=== PATIENT | female | born 1955 ===

== ENCOUNTER 2018-05-05 01:26 | Outpatient (CLI) | payer MEDICARE, BC | END 2018-05-05 23:59 | disposition home or self-care (01) | LOC: DIABETIC 01:26 | PROVIDERS: ATTEND Specialist | DX: E11.65 Type 2 diabetes mellitus with hyperglycemia (principal) | CPT/HCPCS: G0108 ==

== ENCOUNTER 2018-11-02 01:41 | Outpatient (CLI) | payer MEDICARE, BC | END 2018-11-02 23:59 | disposition home or self-care (01) | LOC: DIABETIC 01:41 | PROVIDERS: ATTEND Specialist | DX: E11.65 Type 2 diabetes mellitus with hyperglycemia (principal); Z79.82 Long term (current) use of aspirin; Z79.84 Long term (current) use of oral hypoglycemic drugs | CPT/HCPCS: G0108 ==

== ENCOUNTER 2019-02-02 01:28 | Outpatient (CLI) | payer MEDICARE, BC | END 2019-02-02 23:59 | disposition home or self-care (01) | LOC: DIABETIC 01:28 | PROVIDERS: ATTEND Specialist | DX: E11.65 Type 2 diabetes mellitus with hyperglycemia (principal); Z79.899 Other long term (current) drug therapy | CPT/HCPCS: G0108 ==

== ENCOUNTER 2019-05-11 02:31 | Outpatient (CLI) | payer MEDICARE, BC | END 2019-05-11 23:59 | disposition home or self-care (01) | LOC: DIABETIC 02:31 | PROVIDERS: ATTEND Specialist | DX: E11.65 Type 2 diabetes mellitus with hyperglycemia (principal); Z79.84 Long term (current) use of oral hypoglycemic drugs | CPT/HCPCS: G0108 ==

== ENCOUNTER 2019-08-11 01:39 | Outpatient (CLI) | payer MEDICARE, BC | END 2019-08-11 23:59 | disposition home or self-care (01) | LOC: DIABETIC 01:39 | PROVIDERS: ATTEND Specialist | DX: E11.65 Type 2 diabetes mellitus with hyperglycemia (principal); Z79.84 Long term (current) use of oral hypoglycemic drugs; Z79.899 Other long term (current) drug therapy | CPT/HCPCS: G0108 ==

== ENCOUNTER 2019-12-15 01:30 | Outpatient (CLI) | payer MEDICARE, BC | END 2019-12-15 23:59 | disposition home or self-care (01) | LOC: DIABETIC 01:30 | PROVIDERS: ATTEND Specialist | DX: E11.65 Type 2 diabetes mellitus with hyperglycemia (principal); Z79.84 Long term (current) use of oral hypoglycemic drugs | CPT/HCPCS: G0108 ==